=== PATIENT | male | born 1945 | race Caucasian/White ===

== ENCOUNTER 2017-04-27 15:51 | Inpatient (IN) ==
[2017-04-27] MEDS ORDERED: methylPREDNISolone SOD SUC 125 MG/2 ML VIAL IV STA (17:00)
[2017-04-27] MEDS ORDERED: ALBUTEROL/IPRATROPIUM 3 ML NEB RESP TX STA (17:00)
[2017-04-27] MEDS ORDERED: methylPREDNISolone SOD SUC 125 MG/2 ML VIAL ONE (17:19)
[2017-04-27 18:13] LABS: Basophils # 0.1 10*3/uL (0.0-0.2); Basophils % 0.4 % (0.0-0.8); Eosinophils # 0.1 10*3/uL (0.0-0.87); Eosinophils % 0.9 % (0.00-10.9); Hematocrit 30.4 VOL% (42.0-52.0); Hemoglobin 9.4 GM/DL (14.0-18.0); Immature Granulocytes % 0.8 %; Immature Granulocytes Absolute 0.13 #; Lymphocytes # 3.3 10*3/uL (1.4-4.0); Lymphocytes % 21.2 % (21.2-54.2); Mean Corpuscular HGB Conc 30.9 GM/DL (32-36); Mean Corpuscular Hemoglobin 27 PG (27-34); Mean Corpuscular Volume 86.4 FL (87-102); Mean Platelet Volume 11.2 FL (9.6-12.0); Monocytes # 1.1 10*3/uL (0.11-0.8); Monocytes % 7.3 % (1.7-12.7); Neutrophils # 10.8 10*3/uL (1.4-7.4); Neutrophils % 69.4 % (38.7-73.9); Platelet Count 341 T/CUMM (130-400); Red Blood Count 3.52 MC/CUMM (3.8-5.5); Red Cell Distribution Width 13.7 % (9.3-17.3); White Blood Count 15.6 T/CUMM (4-12)
[2017-04-27 18:27] LABS: Apearance,Urine CLEAR (Clear); Bilirubin,Urine Negative (Negative); Blood, Urine Negative (Negative); Glucose,Urine (UA) Negative (Negative); Ketones,Urine 20 mg/dL (Negative); Mucus,Urine Occasional /LPF (Occasional); Nitrite,Urine Negative (Negative); Protein,Urine 30 MG/DL; RBC,Urine <1 /HPF (0-4); Squamous Epithelial Cell,Urine Occasional /HPF (0-10); Urine Color Amber (Yellow); Urine Specific Gravity 1.027 (1.001-1.035); WBC,Urine 1 /HPF (0-6)
[2017-04-27 18:30] LABS: INR 1.3; PT Patient Result 13.4 SECS
[2017-04-27 18:39] LABS: Alanine Aminotransferase 20 U/L (16-61); Albumin 2.1 G/DL (3.4-5.0); Alkaline Phosphatase 88 U/L (45-117); Aspartate Amino Transferase 29 U/L (0-37); Blood Urea Nitrogen 24 MG/DL (7-18); Calcium 10.4 MG/DL (8.5-10.1); Glucose 96 MG/DL (74-106); Potassium 3.2 MMOL/L (3.5-5.1); Sodium 136 MMOL/L (136-145); Total Protein 7.7 G/DL (6.4-8.3); Troponin I Only < 0.015 NG/ML (0.00-0.045)
[2017-04-27 18:42] LABS: Ammonia 12 UMOL/L (11-32)
[2017-04-27] MEDS ORDERED: ONDANSETRON 4 MG/2 ML VIAL IV PRN (20:59)
[2017-04-27] MEDS ORDERED: ENOXAPARIN 40 MG/0.4 ML SYRINGE SUBCUT SCH (21:00)
[2017-04-27] MEDS ORDERED: POTASSIUM CHLORIDE 20 MEQ TABLET PO ONE ×2 (21:10→21:59)
[2017-04-27] MEDS ORDERED: ALBUTEROL/IPRATROPIUM 3 ML NEB RESP TX PRN ×2 (21:11→21:30)
[2017-04-27] MEDS ORDERED: MECLIZINE 25 MG TABLET PO PRN (21:20)
[2017-04-27] MEDS: SODIUM CHLORIDE 0.9% 1,000 ML IV SCH (23:37)
[2017-04-28 07:24] LABS: Basophils % 0.1 % (0.0-0.8); Hemoglobin 9.4 GM/DL (14.0-18.0); Immature Granulocytes % 0.6 %; Immature Granulocytes Absolute 0.06 #; Lymphocytes % 9.2 % (21.2-54.2); Mean Corpuscular HGB Conc 32.4 GM/DL (32-36); Mean Corpuscular Hemoglobin 27 PG (27-34); Mean Corpuscular Volume 83.6 FL (87-102); Mean Platelet Volume 11.5 FL (9.6-12.0); Monocytes # 0.1 10*3/uL (0.11-0.8); Monocytes % 1.2 % (1.7-12.7); Neutrophils # 9.3 10*3/uL (1.4-7.4); Neutrophils % 88.9 % (38.7-73.9); Platelet Count 334 T/CUMM (130-400); Red Blood Count 3.47 MC/CUMM (3.8-5.5); Red Cell Distribution Width 13.9 % (9.3-17.3); White Blood Count 10.5 T/CUMM (4-12)
[2017-04-28 08:15] LABS: Calcium 9.9 MG/DL (8.5-10.1); Osmolality,Calculated 281.7 MOS/KG (273-304); Potassium 3.9 MMOL/L (3.5-5.1)
[2017-04-28] MEDS: PANTOPRAZOLE 40 MG TABLET PO SCH (10:11)
[2017-04-28] MEDS: ASPIRIN EC 325 MG TABLET PO SCH (10:11)
[2017-04-28] MEDS: DRONABINOL 2.5 MG CAPSULE PO SCH ×2 (10:12→20:32)
[2017-04-28] MEDS: ISOSORBIDE MONONITRATE 30 MG TABLET PO SCH (10:13)
[2017-04-28] MEDS: METOPROLOL TARTRATE 50 MG TABLET PO SCH ×2 (10:14→20:32)
[2017-04-28] MEDS: HEPARIN DRIP 25,000 UNITS/500 ML PREMIX IV SCH (11:52)
[2017-04-28] MEDS ORDERED: HEPARIN 5,000 UNIT/1 ML VIAL IV PRN (11:55)
[2017-04-28] MEDS: SODIUM CHLORIDE 0.9% 1,000 ML IV SCH (14:37)
[2017-04-28] MEDS: oxyCODONE IR 5 MG TABLET PO PRN (18:34)
[2017-04-28 21:58] LABS: INR 1.3; PT Patient Result 13.6 SECS
[2017-04-28 22:12] LABS: Partial Thromboplastin Time 67.5 SECS (0-40)
[2017-04-29 02:03] LABS: INR 1.3; PT Patient Result 13.2 SECS
[2017-04-29 02:12] LABS: Partial Thromboplastin Time 64.7 SECS (0-40)
[2017-04-29 03:03] LABS: Calcium 8.7 MG/DL (8.5-10.1); Osmolality,Calculated 280.7 MOS/KG (273-304); Potassium 3.2 MMOL/L (3.5-5.1)
[2017-04-29] MEDS: HEPARIN DRIP 25,000 UNITS/500 ML PREMIX IV SCH ×3 (03:25→20:10)
[2017-04-29] MEDS: SODIUM CHLORIDE 0.9% 1,000 ML IV SCH ×2 (03:35→03:36)
[2017-04-29 09:52] LABS: INR 1.2
[2017-04-29 10:00] LABS: Partial Thromboplastin Time 67.4 SECS (0-40)
[2017-04-29] MEDS: ASPIRIN EC 325 MG TABLET PO SCH (10:38)
[2017-04-29] MEDS: DRONABINOL 2.5 MG CAPSULE PO SCH ×2 (10:38→22:39)
[2017-04-29] MEDS: ISOSORBIDE MONONITRATE 30 MG TABLET PO SCH (10:40)
[2017-04-29] MEDS: METOPROLOL TARTRATE 50 MG TABLET PO SCH ×2 (10:40→22:39)
[2017-04-29] MEDS: PANTOPRAZOLE 40 MG TABLET PO SCH (10:40)
[2017-04-29 15:34] LABS: INR 1.2
[2017-04-29 15:37] LABS: Partial Thromboplastin Time 66.2 SECS (0-40)
[2017-04-29] MEDS: WARFARIN 5 MG TABLET PO SCH (18:05)
[2017-04-29] MEDS: NYSTATIN 500,000 UNIT/5 ML UDCUP SWISH/SWAL SCH ×2 (18:09→22:43)
[2017-04-29] MEDS: POTASSIUM CHLORIDE 20 MEQ TABLET PO SCH (22:42)
[2017-04-30] MEDS: SODIUM CHLORIDE 0.9% 1,000 ML IV SCH ×3 (04:58→21:09)
[2017-04-30] MEDS: oxyCODONE IR 5 MG TABLET PO PRN (04:59)
[2017-04-30 06:35] LABS: INR 1.3; PT Patient Result 13.3 SECS
[2017-04-30 06:47] LABS: Basophils % 0.2 % (0.0-0.8); Eosinophils # 0.2 10*3/uL (0.0-0.87); Eosinophils % 1.6 % (0.00-10.9); Hematocrit 30.7 VOL% (42.0-52.0); Hemoglobin 9.8 GM/DL (14.0-18.0); Immature Granulocytes % 1.1 %; Immature Granulocytes Absolute 0.15 #; Lymphocytes % 14.5 % (21.2-54.2); Mean Corpuscular HGB Conc 31.9 GM/DL (32-36); Mean Corpuscular Hemoglobin 27 PG (27-34); Mean Corpuscular Volume 84.6 FL (87-102); Monocytes # 0.9 10*3/uL (0.11-0.8); Monocytes % 6.5 % (1.7-12.7); Neutrophils # 10.7 10*3/uL (1.4-7.4); Neutrophils % 76.1 % (38.7-73.9); Platelet Count 306 T/CUMM (130-400); Red Blood Count 3.63 MC/CUMM (3.8-5.5); Red Cell Distribution Width 13.6 % (9.3-17.3); White Blood Count 14.1 T/CUMM (4-12)
[2017-04-30 06:54] LABS: Calcium 9.1 MG/DL (8.5-10.1); Osmolality,Calculated 256.1 MOS/KG (273-304); Potassium 4.2 MMOL/L (3.5-5.1)
[2017-04-30] MEDS ORDERED: LORazepam 2 MG/1 ML VIAL IV PRN (08:59)
[2017-04-30] MEDS ORDERED: TOLVAPTAN 15 MG TABLET PO ONE (11:00)
[2017-04-30] MEDS: NYSTATIN 500,000 UNIT/5 ML UDCUP SWISH/SWAL SCH ×4 (12:14→21:10)
[2017-04-30] MEDS: PANTOPRAZOLE 40 MG TABLET PO SCH (12:24)
[2017-04-30] MEDS: METOPROLOL TARTRATE 50 MG TABLET PO SCH ×2 (12:26→21:10)
[2017-04-30] MEDS: ASPIRIN EC 325 MG TABLET PO SCH (12:26)
[2017-04-30] MEDS: DRONABINOL 2.5 MG CAPSULE PO SCH ×2 (12:28→21:10)
[2017-04-30] MEDS: ISOSORBIDE MONONITRATE 30 MG TABLET PO SCH (12:28)
[2017-04-30] MEDS: POTASSIUM CHLORIDE 20 MEQ TABLET PO SCH ×2 (12:28→21:10)
[2017-04-30] MEDS: HEPARIN DRIP 25,000 UNITS/500 ML PREMIX IV SCH (12:32)
[2017-04-30] MEDS: WARFARIN 5 MG TABLET PO SCH (17:26)
[2017-05-01 05:10] LABS: Basophils % 0.3 % (0.0-0.8); Eosinophils # 0.4 10*3/uL (0.0-0.87); Eosinophils % 2.6 % (0.00-10.9); Hematocrit 30.2 VOL% (42.0-52.0); Hemoglobin 9.8 GM/DL (14.0-18.0); Immature Granulocytes Absolute 0.13 #; Lymphocytes # 2.2 10*3/uL (1.4-4.0); Lymphocytes % 16.8 % (21.2-54.2); Mean Corpuscular HGB Conc 32.5 GM/DL (32-36); Mean Corpuscular Hemoglobin 27 PG (27-34); Mean Corpuscular Volume 83.4 FL (87-102); Mean Platelet Volume 11.9 FL (9.6-12.0); Monocytes # 0.9 10*3/uL (0.11-0.8); Monocytes % 6.8 % (1.7-12.7); Neutrophils # 9.6 10*3/uL (1.4-7.4); Neutrophils % 72.5 % (38.7-73.9); Platelet Count 322 T/CUMM (130-400); Red Blood Count 3.62 MC/CUMM (3.8-5.5); Red Cell Distribution Width 13.7 % (9.3-17.3); White Blood Count 13.3 T/CUMM (4-12)
[2017-05-01] MEDS: HEPARIN DRIP 25,000 UNITS/500 ML PREMIX IV SCH (05:15)
[2017-05-01 05:18] LABS: INR 1.6; PT Patient Result 16.2 SECS
[2017-05-01 05:39] LABS: Calcium 9.2 MG/DL (8.5-10.1); Potassium 4.9 MMOL/L (3.5-5.1)
[2017-05-01] MEDS: oxyCODONE IR 5 MG TABLET PO PRN ×2 (06:32→20:51)
[2017-05-01] MEDS: SODIUM CHLORIDE 0.9% 1,000 ML IV SCH (11:17)
[2017-05-01] MEDS: PANTOPRAZOLE 40 MG TABLET PO SCH (17:36)
[2017-05-01] MEDS: POTASSIUM CHLORIDE 20 MEQ TABLET PO SCH ×2 (17:36→20:51)
[2017-05-01] MEDS: ISOSORBIDE MONONITRATE 30 MG TABLET PO SCH (17:36)
[2017-05-01] MEDS: NYSTATIN 500,000 UNIT/5 ML UDCUP SWISH/SWAL SCH ×3 (17:36→21:26)
[2017-05-01] MEDS: METOPROLOL TARTRATE 50 MG TABLET PO SCH ×2 (17:36→20:51)
[2017-05-01] MEDS: DRONABINOL 2.5 MG CAPSULE PO SCH ×2 (17:36→20:51)
[2017-05-01] MEDS: ASPIRIN EC 325 MG TABLET PO SCH (17:36)
[2017-05-01] MEDS: WARFARIN 5 MG TABLET PO SCH (19:06)
[2017-05-01] MEDS: ZINC OXIDE PASTE 113 GM TUBE TOP SCH (21:25)
[2017-05-02] MEDS: SODIUM CHLORIDE 0.9% 1,000 ML IV SCH ×2 (03:25)
[2017-05-02] MEDS: POTASSIUM CHLORIDE 20 MEQ TABLET PO SCH (10:15)
[2017-05-02] MEDS: ZINC OXIDE PASTE 113 GM TUBE TOP SCH (10:16)
[2017-05-02] MEDS: DRONABINOL 2.5 MG CAPSULE PO SCH (10:16)
[2017-05-02] MEDS: NYSTATIN 500,000 UNIT/5 ML UDCUP SWISH/SWAL SCH ×2 (10:16→12:10)
[2017-05-02] MEDS: METOPROLOL TARTRATE 50 MG TABLET PO SCH (10:16)
[2017-05-02] MEDS: PANTOPRAZOLE 40 MG TABLET PO SCH (10:16)
[2017-05-02] MEDS: ISOSORBIDE MONONITRATE 30 MG TABLET PO SCH (10:16)
[2017-05-02] MEDS: ASPIRIN EC 325 MG TABLET PO SCH (10:17)
[2017-05-02 12:23] VITALS: BP 95/63
== END 2017-05-02 12:39 | disposition hospice, home (50) | DRG 175 ==
LOC: EDBD → EDUNIT# → N.ED 15:51 → SUATTDRO 19:10 → N.EDINP 19:10 → N.4E 21:11
PROVIDERS: ADMIT Internal Medicine Cardiovascular Disease; ATTEND Internal Medicine